=== PATIENT | male | born 1965 | race Caucasian/White ===

== ENCOUNTER 2018-11-06 15:59 | Emergency (ER) | payer OTHER ==
[~2018-11-06] VITALS: Ht 177.8 cm; Wt 81.2 kg
[~2018-11-06 15:59] MED LIST: DOXY-214 PO; FEXO180T61 PO; HC30CR25 TOP
[2018-11-06 16:12] VITALS: BP 106/65; PULSE 89; RESP 18; Ht 177.8 cm; Wt 81.2 kg
== END 2018-11-06 17:04 | disposition home or self-care (01) ==
LOC: FTE 15:59
DX: S60.561A Insect bite (nonvenomous) of right hand, initial encounter (principal); S80.862A Insect bite (nonvenomous), left lower leg, initial encounter; S70.362A Insect bite (nonvenomous), left thigh, initial encounter; L08.9 Local infection of the skin and subcutaneous tissue, unspecified; W57.XXXA Bitten or stung by nonvenomous insect and other nonvenomous arthropods, initial encounter; Y92.9 Unspecified place or not applicable
CPT/HCPCS: 99282